=== PATIENT | female | born 1995 | race Caucasian/White ===

== ENCOUNTER 2017-10-01 18:42 | Emergency (ER) | payer BC, OTHER ==
[2017-10-01] MEDS ORDERED: ACETAMINOPHEN 500 MG TABLET (FP) PO ONE (19:00)
[2017-10-01 19:03] VITALS: BP 125/74; PULSE 114; TEMP 98.8; BMI 31.6
--- NOTE | 2017-10-01 19:05 | PDOC ---
Rapid Medical Evaluation Time Seen by Provider: 10/01/17 18:57 Medical Evaluation: Allergies Allergy/AdvReac Type Severity Reaction Status Date / Time No Known Allergies Allergy Verified 12/15/15 08:38 10/01/17 18:57 The patient presents with a chief complaint of: Falling in the bathroom approximately 20 minutes ago. Slipped and caught herself with her L hand. No head trauma, LOC. L wrist pain/L 4th and 5th finger. R hand dominant. I have performed a brief in-person evaluation of this patient; Pertinent physical exam findings: TTP of the L 4th and 5th fingers. Rings on. I have ordered the following: X-ray, Tylenol The patient will proceed to the ED for further evaluation.
--- NOTE | 2017-10-01 19:48 | PDOC ---
History of Present Illness - General Chief Complaint: Injury Stated Complaint: LT HAND INJURY/34 WKS Time Seen by Provider: 10/01/17 18:57 History Source: Patient Exam Limitations: No Limitations - History of Present Illness Initial Comments: 10/01/17 19:44 21 yr female slipped and fell injured left hand. Pt denies abd pain. pt is 34 weeks . pt has 2 rings that are on her left ring finger. Occurred: reports: just prior to arrival Past History - Past Medical History Allergies/Adverse Reactions: Allergies Allergy/AdvReac Type Severity Reaction Status Date / Time No Known Allergies Allergy Verified 10/01/17 18:57 Home Medications: Ambulatory Orders Vit/Iron Fum/Folic AC [ Tablet] 1 each PO DAILY 12/15/15 Asthma: No Cancer: No Cardiac Disorders: No COPD: No Diabetes: No HTN: No Seizures: No Thyroid Disease: No Other medical history: DENIES. - Reproductive History (#): 1 - Suicide/Smoking/Psychosocial Hx Smoking Status: No Smoking History: Never smoked Have you smoked in the past 12 months: No Number of Cigarettes Smoked Daily: 0 Hx Alcohol Use: No Drug/Substance Use Hx: No Hx Substance Use Treatment: No Review of Systems - Review of Systems Able to Perform ROS?: Yes Is the patient limited Thai proficient: No Constitutional: No: Symptoms Reported HEENTM: No: Symptoms Reported Respiratory: No: Symptoms reported Cardiac (ROS): No: Symptoms Reported ABD/GI: No: Symptoms Reported : No: Symptoms Reported Musculoskeletal: Yes: See HPI *Physical Exam - Vital Signs Last Vital Signs Temp Pulse Resp BP Pulse Ox 98.8 F 114 H 19 125/74 100 10/01/17 18:58 10/01/17 18:58 10/01/17 18:58 10/01/17 18:58 10/01/17 18:58 - Physical Exam General Appearance: Yes: Nourished, Appropriately Dressed HEENT: positive: EOMI, NING Respiratory/Chest: positive: Lungs Clear, Normal Breath Sounds Cardiovascular: positive: Regular Rhythm, Regular Rate Gastrointestinal/Abdominal: positive: Other (gravid abdomen ) Extremity: positive: Normal Capillary Refill, Tender (left hand swollen dorsal side at the base of fifth and fourth ) Integumentary: positive: Normal Color, Dry, Warm Neurologic: positive: development geologist II-XII NML intact, Fully Oriented, Alert, Normal Mood/ Affect Procedures - Consent Consent obtained: Verbal, From Patient (consent given to remove 2 yellow colored rings with stones with the ring cutter .) - Splinting Hand-Made Type: orthoglass (left hand boxer splint placed) ED Treatment Course - Medications Given in the ED: ED Medications Discontinued Medications Generic Name Dose Route Start Last Admin Trade Name Alfa PRN Reason Stop Dose Admin Acetaminophen 1,000 mg 10/01/17 19:00 10/01/17 19:06 Tylenol - PO 10/01/17 19:01 1,000 mg ONCE ONE Administration Medical Decision Making - Medical Decision Making 10/01/17 19:45 cc: left hand injury slip and fall multiple attempts to manually remove the 2 rings from left ring finger unsuccessful, will use the ring cutter. pt gave verbal consent witnessed by EMIL Scott 2 yellow colored rings with clear stones removed. nv intact , skin intact after the removal pt to xray. 10/01/17 20:12 10/01/17 20:38 pos fracture minimally displaced left 4th metacarpal bone nv intact orthoglass boxer splint placed covering the 4th and 5th metacarpals *DC/Admit/Observation/Transfer Diagnosis at time of Disposition: Hand fracture, left Qualifiers: Encounter type: initial encounter Fracture type: closed Qualified Code(s): S62.92XA - Unspecified fracture of left wrist and hand, initial encounter for closed fracture - Discharge Dispostion Disposition: HOME Condition at time of disposition: Good - Referrals Referrals: Bola Molina MD [Staff Physician] - Heber Merino MD [Staff Physician] - - Patient Instructions Printed Discharge Instructions: How to Use a Sling Additional Instructions: keep elvated in the sling except to sleep follow with either Dr.:ent, or do not remove the splint do not get wet take tylenol 650mg every 4-6hrs for pain as needed return to ER for any concerns - Post Discharge Activity
== END 2017-10-01 20:40 | disposition home or self-care (01) ==
LOC: JERFT 18:42
PROC: 2W3DX1Z Immobilization of Left Lower Arm using Splint (ICD-10-PCS; principal; 2017-10-01)
DX: S62.395A Other fracture of fourth metacarpal bone, left hand, initial encounter for closed fracture (principal); S62.397A Other fracture of fifth metacarpal bone, left hand, initial encounter for closed fracture; W01.0XXA Fall on same level from slipping, tripping and stumbling without subsequent striking against object, initial encounter; Y93.89 Activity, other specified; Y92.012 Bathroom of single-family (private) house as the place of occurrence of the external cause; Y99.8 Other external cause status; Z3A.34 34 weeks gestation of pregnancy
CPT/HCPCS: 73110-TC-LT; 73130-TC-LT; 99281-25